=== PATIENT | female | born 1975 | race Caucasian/White ===

== ENCOUNTER 2019-06-27 16:37 | Emergency (ER) | payer OTHER ==
[2019-06-27 16:45] VITALS: TEMP 98.2
[2019-06-27] MEDS ORDERED: KETOROLAC 30 MG/ML 1 ML VIAL IM STA (16:54)
[2019-06-27] MEDS ORDERED: DIPH,PERTUS(ACELL)TETVAC-LF 0.5 ML VIAL IM ONE (16:54)
[2019-06-27] MEDS ORDERED: ceFAZolin 1,000 MG VIAL (IM USE) IM STA (16:54)
--- NOTE | 2019-06-27 17:00 | ED ---
General Adult HPI - General Chief complaint: Skin/Abscess/Foreign Body Stated complaint: [facility] - nail in rt leg Time Seen by Provider: 06/27/19 16:42 Source: patient, RN notes reviewed Mode of arrival: ambulatory Limitations: no limitations - History of Present Illness Initial comments: 44-year-old female presents to the emergency department for a chief complaint of foreign body in the right knee. Patient states that she was at work loading luh of felt. States she felt a pinch in her right knee. States that when she inspected this area she noticed there was a nail sticking out of her leg. States the area is painful and numb. Patient is unsure of tetanus status. Patient has no other complaints at this time including shortness of breath, ches t pain, abdominal pain, nausea or vomiting, headache, or visual changes. - Related Data Previous Rx's Medication Instructions Recorded Cephalexin [Keflex] 500 mg PO Q6HR #40 cap 06/27/19 Allergies Allergy/AdvReac Type Severity Reaction Status Date / Time tramadol Allergy Nausea Verified 06/27/19 16:43 Review of Systems ROS Statement: Those systems with pertinent positive or pertinent negative responses have been documented in the HPI. ROS Other: All systems not noted in ROS Statement are negative. Past Medical History Past Medical History: No Reported History History of Any Multi-Drug Resistant Organisms: None Reported Past Surgical History: Cholecystectomy Additional Past Surgical History / Comment(s): right lower leg cyst removed Past Psychological History: No Psychological Hx Reported Smoking Status: Former smoker Past Alcohol Use History: None Reported Past Drug Use History: None Reported General Exam Limitations: no limitations General appearance: alert, in no apparent distress Head exam: Present: atraumatic, normocephalic, normal inspection Eye exam: Present: normal appearance, PERRL, EOMI. Absent: scleral icterus, conjunctival injection, periorbital swelling ENT exam: Present: normal exam, mucous membranes moist Neck exam: Present: normal inspection. Absent: tenderness, meningismus, lymphadenopathy Respiratory exam: Present: normal lung sounds bilaterally. Absent: respiratory distress, wheezes, rales, rhonchi, stridor Cardiovascular Exam: Present: regular rate, normal rhythm, normal heart sounds. Absent: systolic murmur, diastolic murmur, rubs, gallop, clicks Extremities exam: Present: normal inspection, full ROM, normal capillary refill, other (Patient does have pants on over the leg but you can see the nail head along the medial distal aspect of the right knee. Patient does not want her pants cut at this time.). Absent: tenderness, pedal edema, joint swelling, calf tenderness Course Vital Signs 06/27/19 06/27/19 06/27/19 16:40 16:45 17:45 Temperature 98.2 F Pulse Rate 93 86 81 Respiratory 16 20 18 Rate Blood Pressure 146/98 143/98 140/87 O2 Sat by Pulse 98 99 99 Oximetry Medical Decision Making - Medical Decision Making She has nail in the medial aspect of the right proximal tib-fib area. This does not include the knee joint space. X-ray shows nail foreign body in the soft tissue. I did attempt to remove this without lidocaine because patient did not want to cut her pants. However patient was unable to tolerate this. Pants were cut. 6 mL of lidocaine was injected into the area and nail was removed using traction. It was then irrigated with saline pressure irrigation. Tetanus was updated. Patient was given Ancef and will be given Keflex outpatient. Discussed strict return parameters including ulcer infection. Discussed returning if she has any worsening symptoms otherwise she will follow-up with primary care for recheck in the next 1-2 days. Disposition Clinical Impression: Soft tissues foreign body Disposition: HOME SELF-CARE Condition: Good Instructions (If sedation given, give patient instructions): Puncture Wound (ED) Additional Instructions: Please take Keflex as directed starting tomorrow. Please monitor for signs of infection such as redness drainage or fever and return if these occur. Follow- up with primary care for a wound recheck in the next 1-2 days. Return if you have any worsening symptoms. Prescriptions: Cephalexin [Keflex] 500 mg PO Q6HR #40 cap Is patient prescribed a controlled substance at d/c from ED?: No Referrals: Master Gregg DO [Primary Care Provider] - 1-2 days Time of Disposition: 18:29
[2019-06-27] MEDS ORDERED: LIDOCAINE 1% INJ 10MG/ML (20 ML MDV) SQ ONE ×2 (17:14→18:26)
--- NOTE | 2019-06-27 17:22 | XR ---
EXAMINATION TYPE: XR knee complete RT DATE OF EXAM: 06/27/2019 COMPARISON: NONE HISTORY: Foreign body TECHNIQUE: 3 views FINDINGS: There is a nail foreign body embedded in the soft tissues on the medial aspect of the proxi mal tibia on the frontal view. The nail head is exposed at the skin surface. The knee joint spaces are normal. There is no sign of joint effusion. IMPRESSION: Nail foreign body in the soft tissues. No fracture. Normal knee joint. Thickening of the proximal fibula consistent with an old healed fracture.
[2019-06-27 18:09] VITALS: BP 140/87
[2019-06-27 18:29] VITALS: PULSE 81
[2019-06-27 18:47] VITALS: RESP 20
== END 2019-06-27 18:47 | disposition home or self-care (01) ==
LOC: EC 16:37
DX: M79.5 Residual foreign body in soft tissue (principal); Z87.891 Personal history of nicotine dependence; Z88.5 Allergy status to narcotic agent; Z23 Encounter for immunization; W45.0XXA Nail entering through skin, initial encounter; Y93.89 Activity, other specified; Y92.69 Other specified industrial and construction area as the place of occurrence of the external cause; Y99.0 Civilian activity done for income or pay
CPT/HCPCS: 73562; 90715; 99283; 64450; 96372 ×2; 90471; J0690; J2001; J1885

== ENCOUNTER 2019-07-13 14:21 | Emergency (ER) | payer OTHER ==
[2019-07-13] MEDS ORDERED: PROPARACAINE 0.5% OPHTH DROPS 15 ML BTL LEFT EYE STA (14:49)
--- NOTE | 2019-07-13 15:29 | ED ---
General Adult HPI - General Chief complaint: Eye Problems Stated complaint: left eye irritant Time Seen by Provider: 07/13/19 14:29 Source: patient, RN notes reviewed, old records reviewed Mode of arrival: ambulatory Limitations: no limitations - History of Present Illness Initial comments: 44-year-old female patient presents to ED for chief complaint of left eye irritation for the last 4 days. Patient reports that she woke up and noticed some bleeding in her left eye. Patient reports that she has been having some localized discomfort as well as waxing and waning headaches. Reports that her vision is at baseline although she did have a brief scotoma which resolved. Denies any other complaints at this time. Systemic: Pt denies fatigue, fever/chills, rash. Pt denies weakness, night sweats, weight loss. Neuro: Pt denies headache, visual disturbances, syncope or pre-syncope. HEENT: Pt denies rhinorrhea, pharyngitis or notable lymphadenopathy. Cardiopulmonary: Pt denies chest pain, SOB, heart palpitations, dyspnea on exertion. Abdominal/GI: Pt denies abdominal pain, n/v/d. : Pt denies dysuria, burning w/ urination, frequency/urgency. Denies new onset urinary or bowel incontinence. MSK: Pt denies myalgia, loss of strength or function in extremities. Neuro: Pt denies new onset weakness, paresthesias. - Related Data Previous Rx's Medication Instructions Recorded Cephalexin [Keflex] 500 mg PO Q6HR #40 cap 06/27/19 Allergies Allergy/AdvReac Type Severity Reaction Status Date / Time tramadol Allergy Nausea Verified 07/13/19 14:25 Review of Systems ROS Statement: Those systems with pertinent positive or pertinent negative responses have been documented in the HPI. ROS Other: All systems not noted in ROS Statement are negative. Past Medical History Past Medical History: No Reported History History of Any Multi-Drug Resistant Organisms: None Reported Past Surgical History: Cholecystectomy Additional Past Surgical History / Comment(s): right lower leg cyst removed Past Psychological History: No Psychological Hx Reported Smoking Status: Former smoker Past Alcohol Use History: None Reported Past Drug Use History: None Reported General Exam - General Exam Comments Initial Comments: Constitutional: NAD, AOX3, Pt has pleasant affect. HEENT: NC/AT, trachea midline, neck supple, no lymphadenopathy. Posterior pharynx non erythematous, without exudates. External ears appear normal, without discharge. Mucous membranes moist. Eyes PERRLA, EOM intact. There is no scleral icterus. No pallor noted. Small conjunctiva hemorrhage noted left eye at 3:00. Flourescence stain did not reveal any corneal abrasion or ulcerations. Intraocular pressure of left eye average of 18. Intraocular pressure of right eye average of 25. Cardiopulmonary: RRR, no murmurs, rubs or gallops, no JVD noted. Lungs CTAB in anterior and posterior umanzor. No peripheral edema. Abdominal exam: Abdomen soft and non-distended. Abdomen non-tender to palpation in all 4 quadrants. Bowel sounds active in LLQ. No hepatosplenomegaly. No ecchymosis Neuro: CN II-XII grossly intact. No nuchal rigidity. No raccon eyes, no cuba sign, no hemotympanum. No cervical spinal tenderness. MSK: No posterior calf tenderness bilaterally, homans sign negative bilaterally. Posterior tibialis and radial pulse +2 bilaterally. Sensation intact in upper and lower extremities. Full active ROM in upper and lower extremities, 5/5 stregnth. Limitations: no limitations Course Vital Signs 07/13/19 14:25 Temperature 97.4 F L Pulse Rate 87 Respiratory 18 Rate Blood Pressure 138/93 O2 Sat by Pulse 96 Oximetry Medical Decision Making - Medical Decision Making 44-year-old female patient presents to ED for chief complaint of left eye irritation for the last 4 days. Patient reports that she woke up and noticed some bleeding in her left eye. Patient reports that she has been having some localized discomfort as well as waxing and waning headaches. Reports that her vision is at baseline although she did have a brief scotoma which resolved. Denies any other complaints at this time. Pt VSS, afebrile. Physical exam displayed: Small conjunctiva hemorrhage noted left eye at 3:00. Flourescence stain did not reveal any corneal abrasion or ulcerations. Intraocular pressure of left eye average of 18. Intraocular pressure of right eye average of 25. Neurologic exam is within normal limits. Visual acuity 20/30 left eye, 20/20 right eye. Subconjectival hemorrhage does appear to be reabsorbing. there is not discharge noted. Patient will be discharged for follow-up with [facility] mental health today, will follow up with primary care provider tomorrow, return to ER if condition worsens. Case discussed and pt seen by Dr. Estrada. Disposition Clinical Impression: Subconjunctival hemorrhage of left eye, Elevated IOP Disposition: HOME SELF-CARE Condition: Stable Instructions (If sedation given, give patient instructions): Subconjunctival Hemorrhage (ED) Additional Instructions: Follow-up with [facility] today, call after discharge. Follow-up with primary care provider tomorrow. Return immediately to ER if condition worsens in any way. Is patient prescribed a controlled substance at d/c from ED?: No Referrals: Master Gregg DO [Primary Care Provider] - 1-2 days Shiraz Chatterjee MD [STAFF PHYSICIAN] - 1-2 days
[2019-07-13 15:46] VITALS: TEMP 97.9
[2019-07-13 15:48] VITALS: BP 132/78; PULSE 72; RESP 16
== END 2019-07-13 15:35 | disposition home or self-care (01) ==
LOC: EC 14:21
DX: H11.32 Conjunctival hemorrhage, left eye (principal); H40.052 Ocular hypertension, left eye; Z87.891 Personal history of nicotine dependence; Z88.5 Allergy status to narcotic agent
CPT/HCPCS: 99283

== ENCOUNTER → 2020-05-29 | Outpatient (CLI) | payer OTHER ==
[2020-05-29 11:06] LABS: Basophils # (A) 0.1 k/uL (0-0.2); Basophils % (A) 1 %; Eosinophils # (A) 0.2 k/uL (0-0.7); Eosinophils % (A) 2 %; HCT 43.2 % (34.0-46.0); HGB 14.2 gm/dL (11.4-16.0); Lymphocytes # (A) 2.9 k/uL (1.0-4.8); Lymphocytes % (A) 28 %; MCH 29.5 pg (25.0-35.0); MCHC 32.9 g/dL (31.0-37.0); MCV 89.6 fL (80.0-100.0); Mean Platelet Volume 8.3; Monocytes # (A) 0.6 k/uL (0-1.0); Monocytes % (A) 6 %; Neutrophils # (A) 6.5 k/uL (1.3-7.7); Neutrophils % (A) 62 %; Platelet Count 363 k/uL (150-450); RBC 4.82 m/uL (3.80-5.40); RDW 13.1 % (11.5-15.5); WBC 10.4 k/uL (3.8-10.6)
[2020-05-29 11:09] LABS: Appearance,Urine Clear (Clear); Bacteria,Urine Few /hpf; Bilirubin,Urine Negative (Negative); Blood,Urine Negative (Negative); Color,Urine Light Yellow; Glucose,Urine (UA) Negative (Negative); Ketones,Urine Negative (Negative); Leukocyte Esterase,Urine Moderate (Negative); Mucus,Urine Rare /hpf; Nitrite,Urine Negative (Negative); Protein,Urine Negative (Negative); RBC,Urine 1 /hpf (0-5); Specific Gravity,Urine 1.007 (1.001-1.035); Squamous Epithelial Cell,Urine 1 /hpf (0-4); Urobilinogen,Urine <2.0 mg/dL (<2.0); WBC,Urine 9 /hpf (0-5)
[2020-05-29 12:25] LABS: Erythrocyte Sedimentation Rate 8 mm/hr (0-20)
[2020-05-29 19:19] LABS: Cyclic Citrull Pep IgG Unit 2.4 U/mL; Cyclic Citrullinated Pep IgG NEGATIVE (NEGATIVE)
[2020-05-29 20:22] LABS: Cancer Antigen 125 4.7 U/mL (0.0-30.1)
[2020-05-29 21:25] LABS: African American GFR (CKD) 90.1 (60.0-200.0); Albumin 5.1 g/dL (3.80-4.90); Albumin/Globulin Ratio 2.04 (1.60-3.17); Anion Gap 7.4 mmol/L (4.00-12.00); C Reactive Protein 0.7 mg/dL (0.0-0.8); Calcium 11.2 mg/dL (8.7-10.3); Carbon Dioxide 29.6 mmol/L (21.6-31.8); Globulin 2.5 g/dL (1.6-3.3); Non-African American GFR(CKD) 77.8 (60.0-200.0); Potassium 3.9 mmol/L (3.5-5.5); Total Bilirubin 0.4 mg/dL (0.3-1.2); Total Protein 7.6 g/dL (6.2-8.2)
== END | disposition home or self-care (01) ==
LOC: LABWHC1 09:49
PROVIDERS: ATTEND Family Medicine
DX: M13.0 Polyarthritis, unspecified (principal); E83.52 Hypercalcemia; Z80.41 Family history of malignant neoplasm of ovary
CPT/HCPCS: 36415; 80053; 81001; 82164; 85025; 85652; 86038; 86140; 86200; 86304; 86618

== ENCOUNTER → 2020-06-13 | Outpatient (CLI) | payer OTHER ==
--- NOTE | 2020-06-16 14:03 | XR ---
EXAMINATION TYPE: XR chest 2V DATE OF EXAM: 06/13/2020 COMPARISON: NONE HISTORY: Hypercalcemia TECHNIQUE: Frontal and lateral views of the chest are obtained. FINDINGS: There is no focal air space opacity, pleural effusion, or pneumothorax seen. The cardiac silhouette size is within normal limits. The osseous structures are intact. IMPRESSION: No acute cardiopulmonary process.
--- NOTE | 2020-06-17 09:13 | CT ---
EXAMINATION TYPE: CT chest w con DATE OF EXAM: 06/13/2020 COMPARISON: Radiograph 06/13/2020 HISTORY: 45-year-old female E83.52, Hypercalcemia, rule out sarcoid. TECHNIQUE: Contiguous axial scanning of the chest after the administration of 100ml mL of Isovue 300. Coronal/sagittal reconstructions performed. CT DLP: 420mGycm. Automatic exposure control utilized for a dose reduction. FINDINGS: Heart normal size without pericardial effusion. Aorta normal caliber with a bovine configuration to the aortic arch. No thoracic lymphadenopathy by CT size criteria. No thickening of the bronchovascular bundles or perilymphatic nodularity identified at this time. No consolidation or pleural effusion. Minimal emphysematous change in the upper lungs. Low-attenuation of the liver suggests underlying fatty infiltration. Cholecystectomy clips. Bones: No osseous destructive process. IMPRESSION: 1. No specific CT findings of sarcoidosis in the chest at this time. 2. Minimal emphysematous change in the upper lungs. 3. No acute pulmonary process. 4. Hepatic steatosis. Prior cholecystectomy.
== END | disposition home or self-care (01) ==
LOC: RADCTMAIN 16:10
PROVIDERS: ATTEND Family Medicine
DX: E83.52 Hypercalcemia (principal); K76.0 Fatty (change of) liver, not elsewhere classified
CPT/HCPCS: 71046; 71260; Q9967

== ENCOUNTER 2020-10-29 14:01 | Emergency (ER) | payer OTHER ==
[2020-10-29 14:23] VITALS: RESP 18; TEMP 97.8
[2020-10-29] MEDS ORDERED: HYDROmorphone 0.5 MG/0.5 ML SYRINGE IM STA (15:08)
[2020-10-29] MEDS ORDERED: LIDOCAINE 5% PATCH TOPICAL STA (15:08)
--- NOTE | 2020-10-29 15:31 | ED ---
Back Pain HPI - General Chief Complaint: Back Pain/Injury Stated Complaint: sent from for lower back pain Time Seen by Provider: 10/29/20 14:39 Source: patient - History of Present Illness Initial Comments: 45-year-old female presents to emergency department with a chief complaint of low back pain. Patient reports about one week ago she fell on her buttocks from a squatting position as she was attempting to pick something up off the ground. Patient reports soon after she developed pain in the right lumbosacral region is radiating down the posterior aspect of the right lower extremity to the mid thigh region. Patient states the pain is exacerbated with ambulation, weightbearing or any twisting motion. States she with her primary care physician of advised to come to emergency department for analgesia and CT imaging. Patient denies any saddle anesthesia, urinary retention with ORIF or bowel incontinence. Reports taking Tylenol and Motrin with no significant improvement in her symptoms. - Related Data Previous Rx's Medication Instructions Recorded cephALEXin [Keflex] 500 mg PO Q6HR #40 cap 06/27/19 Cyclobenzaprine [Flexeril] 5 mg PO TID PRN #15 tablet 10/29/20 HYDROcodone/APAP 5-325MG [Willis 1 tab PO Q6HR PRN 3 Days #12 tab 10/29/20 5-325] predniSONE 50 mg PO DAILY #5 tab 10/29/20 Allergies Allergy/AdvReac Type Severity Reaction Status Date / Time tramadol Allergy Nausea Verified 10/29/20 14:20 Review of Systems ROS Statement: Those systems with pertinent positive or pertinent negative responses have been documented in the HPI. ROS Other: All systems not noted in ROS Statement are negative. Past Medical History Past Medical History: No Reported History History of Any Multi-Drug Resistant Organisms: None Reported Past Surgical History: Section, Cholecystectomy Additional Past Surgical History / Comment(s): right lower leg cyst removed Past Psychological History: No Psychological Hx Reported Smoking Status: Current every day smoker Past Alcohol Use History: None Reported Past Drug Use History: None Reported General Exam Limitations: no limitations General appearance: alert, in no apparent distress, obese Head exam: Present: atraumatic, normocephalic, normal inspection Eye exam: Present: normal appearance, PERRL, EOMI Pupils: Present: normal accommodation ENT exam: Present: normal exam, normal oropharynx, mucous membranes moist, TM's normal bilaterally, normal external ear exam Neck exam: Present: normal inspection, full ROM. Absent: tenderness Respiratory exam: Present: normal lung sounds bilaterally. Absent: respiratory distress, wheezes Cardiovascular Exam: Present: regular rate, normal rhythm, normal heart sounds GI/Abdominal exam: Present: soft. Absent: distended, tenderness, guarding, rebound, rigid Extremities exam: Present: normal inspection, full ROM, normal capillary refill. Absent: tenderness, pedal edema, joint swelling, other Back exam: Present: normal inspection, full ROM, tenderness, paraspinal tenderness (Right-sided paraspinal tenderness in the lower lumbar region with tenderness along the posterior aspect of the right buttock and right upper extremity.). Absent: CVA tenderness (R), CVA tenderness (L), muscle spasm, vertebral tenderness, rash noted Neurological exam: Present: alert, oriented X3, CN II-XII intact, normal gait Psychiatric exam: Present: normal affect, normal mood Skin exam: Present: warm, dry, intact, normal color Course Vital Signs 10/29/20 10/29/20 14:21 17:04 Temperature 97.8 F Pulse Rate 88 70 Respiratory 18 18 Rate Blood Pressure 129/93 118/79 O2 Sat by Pulse 100 98 Oximetry Medical Decision Making - Medical Decision Making 45-year-old female presents to emergency Department with a chief complaint of back pain. Physical examination, right lower paraspinal tenderness in the lumbosacral region with sciatica-type symptoms going to the right lower extremity. Likely lumbar radiculopathy. CT of the lumbar spine which includes the sacrum revealed no acute findings aside from mild L4/L5 central stenosis. Patient was given analgesia and a Lidoderm patch in the emergency department. She did report some improvement but the pain is still persistent. I did give her second dose of analgesia and will discharge her with 3 days of Willis, Flexeril and steroids. I advised the patient to follow-up with a spine surgeon. No concern for cauda equina at this time. Return parameters discussed the patient was standing agreeable. Case discussed with Disposition Clinical Impression: Lumbar radiculopathy, right Disposition: HOME SELF-CARE Condition: Stable Instructions (If sedation given, give patient instructions): Acute Low Back Pain (ED) Additional Instructions: Follow-up with reception specialist. Take medication as directed. Return to emergency department if symptoms worsen. Prescriptions: Cyclobenzaprine [Flexeril] 5 mg PO TID PRN #15 tablet PRN Reason: Muscle Spasm HYDROcodone/APAP 5-325MG [Willis 5-325] 1 tab PO Q6HR PRN 3 Days #12 tab PRN Reason: Pain predniSONE 50 mg PO DAILY #5 tab Is patient prescribed a controlled substance at d/c from ED?: No Referrals: Jennifer Lopez MD [Primary Care Provider] - 1-2 days Real Barron DO [Doctor of Osteopathic Medicine] - 1-2 days Time of Disposition: 16:33
--- NOTE | 2020-10-29 16:04 | CT ---
EXAMINATION TYPE: CT lumbar spine wo con DATE OF EXAM: 10/29/2020 COMPARISON: None HISTORY: Sacrum imaged per ordering PA. Acute low back pain. CT DLP: 1394.[address] of the lumbar spine was performed. Bone and soft tissue window settings are submitted as well as coronal and sagittal reconstructions. L1-L2: Normal disc space height. No disc herniation protrusion or central stenosis. No facet joint arthropathy. No evidence for foraminal encroachment. L2-L3: Normal disc space height. No disc herniation protrusion or central stenosis. No facet joint arthropathy. No evidence for foraminal encroachment. L3-L4: Normal disc space height. No disc herniation protrusion or central stenosis. No facet joint arthropathy. No evidence for foraminal encroachment. L4-L5: Mild degenerative disc space narrowing. Moderate posterior disc bulge. Effacement of the ventr al thecal sac with mild central stenosis suggested. L5-S1: Normal disc space height. No disc herniation protrusion or central stenosis. No facet joint arthropathy. No evidence for foraminal encroachment. No paraspinal masses are identified. Lumbar segments are free if fracture. Visualized sacral segment s are unremarkable. IMPRESSION: 1. L4-5 mild central stenosis.
[2020-10-29] MEDS ORDERED: HYDROmorphone 1 MG/ML 1 ML SYRINGE IM STA (16:31)
[2020-10-29 17:05] VITALS: BP 118/79; PULSE 70
== END 2020-10-29 17:04 | disposition home or self-care (01) ==
LOC: EC 14:01
DX: M51.16 Intervertebral disc disorders with radiculopathy, lumbar region (principal); F17.200 Nicotine dependence, unspecified, uncomplicated
CPT/HCPCS: 72131; 99283; 96372 ×2; J1170 ×2

== ENCOUNTER → 2021-12-11 | Outpatient (CLI) | payer OTHER ==
[2021-12-11 18:10] LABS: Basophils # (A) 0.08 X 10*3/uL (0.00-0.10); Basophils % (A) 0.7 %; Eosinophils # (A) 0.24 X 10*3/uL (0.04-0.35); HGB 12.5 g/dL (12.0-15.0); Immature Grans, Automated 0.4 %; Lymphocytes # (A) 4.87 X 10*3/uL (0.90-5.00); Lymphocytes % (A) 41.4 %; MCH 29.3 pg (27.0-32.0); MCHC 32.1 g/dL (32.0-37.0); MCV 91.3 fL (80.0-97.0); Mean Platelet Volume 11.9 fL (9.5-12.2); Monocytes # (A) 1.17 X 10*3/uL (0.20-1.00); Monocytes % (A) 9.9 %; NRBC Per 100 WBC 0 /100 WBCS (0.0-0.0); Neutrophils # (A) 5.36 X 10*3/uL (1.80-7.70); Neutrophils % (A) 45.6 %; Platelet Count 292 X 10*3/uL (140-440); RBC 4.27 X 10*6/uL (4.10-5.20); RDW 13.6 % (11.5-14.5); WBC 11.77 X 10*3/uL (4.50-10.00)
[2021-12-11 18:19] LABS: ALT 67 U/L (8-44); AST 32 U/L (13-35); African American GFR (CKD) 113.4 (60.0-200.0); Albumin 4.4 g/dL (3.8-4.9); Alkaline Phosphatase 79 U/L (41-126); BUN/Creat Ratio 18.92 Ratio (12.00-20.00); Calcium 9.9 mg/dL (8.7-10.3); Carbon Dioxide 24.2 mmol/L (20.0-27.5); Chloride 102 mmol/L (96-109); Chol/HDL Ratio 5.77 Ratio; Globulin 2.5 g/dL (1.6-3.3); Glucose 76 mg/dL (70-110); Iron 116 ug/dL (50-170); LDL Cholesterol,Calculated 168.6 mg/dL (0.0-131.0); Lipase 19 U/L (14-63); Non-African American GFR(CKD) 97.8 (60.0-200.0); Sodium 141 mmol/L (135-145); Total Iron Binding Capacity 416 ug/dL (228-460); Total Protein 6.9 g/dL (6.2-8.2)
[2021-12-11 19:07] LABS: Erythrocyte Sedimentation Rate 18 mm/Hr (0-20)
== END | disposition home or self-care (01) ==
LOC: LABWHC1 11:25
PROVIDERS: ATTEND Family Medicine
DX: M06.9 Rheumatoid arthritis, unspecified (principal); M51.26 Other intervertebral disc displacement, lumbar region; R73.9 Hyperglycemia, unspecified; K29.00 Acute gastritis without bleeding; E78.5 Hyperlipidemia, unspecified; E53.8 Deficiency of other specified B group vitamins; E55.9 Vitamin D deficiency, unspecified; R42 Dizziness and giddiness; G37.9 Demyelinating disease of central nervous system, unspecified; R41.3 Other amnesia; H53.9 Unspecified visual disturbance
CPT/HCPCS: 36415; 80053; 80061; 82306; 82607; 83036; 83540; 83550; 83690; 84443; 85025; 85652; 86140

== ENCOUNTER → 2022-03-27 | Outpatient (CLI) | payer OTHER ==
--- NOTE | 2022-03-27 14:01 | BD ---
EXAMINATION TYPE: Axial Bone Density DATE OF EXAM: 03/27/2022 COMPARISON: NONE CLINICAL HISTORY: 46 years year old Female. ICD-10 CODE: Z80.3,N95.1,M89.9,Z79.52 DISORDER OF BONE Height: 5 FT 4 IN Weight: 225 FRAX RISK QUESTIONS: Alcohol (3 or more units per day): NO Family History (Parent hip fracture): NO Glucocorticoids (More than 3mos): YES (Ex: prednisone, prednisolone, methylprednisolone, dexamethasone, and hydrocortisone). History of Fracture in Adulthood: NO Secondary Osteoporosis: 1. Type 1 Diabetes: NO 2. Hyperthyroidism: NO 3. Menopause before 45: YES 4. Malnutrition: NO 5. Chronic liver disease: NO Rheumatoid Arthritis: YES Current Tobacco Use: YES RISK FACTORS HISTORY OF: Surgery to Spine/Hip(right/left)/Wrist (right/left): NO Family History of Osteoporosis: YES Active: YES Diet low in dairy products/other sources of calcium: NO Postmenopausal woman: YES Take estrogen and/or progesterone medications: NO Lost more than 2 inches in height since high school: YES Frequent falls: NO Poor Health: GOOD Hyperparathyroidism: NO Adrenal Insufficiency: NO MEDICATIONS: Additional Medications: ZANAFLES, CETIRIZINE, METHOCARBMOL,,MONTELUKAST, OMEPRAZOLE, NAPROXEN, ROPINI ROLE,SAXENDA INJ, Additional History: EXAM MEASUREMENTS: Bone mineral densitometry was performed using the VoluBill System. Bone mineral density as measured about the Lumbar spine is: ----- L1-L4(G/cm2): 1.212 T Score Values are as follows: ----- L1: 1.0 ----- L2: 0.3 ----- L3: 0.2 ----- L4: -0.4 ----- L1-L4: 0.3 BASELINE Bone mineral density about the R hip (g/cm2): 0.896 Bone mineral density about the L hip (g/cm2): 0.976 T Score values are as follows: -----R Neck: -1.0 -----L Neck: -0.4 -----R Total: 0.1 -----L Total: 0.5 BASELINE FRAX%s: The graph provided illustrates a 3.4 % chance for a major osteoporotic fx and a 0.2 % chance for the hips probability for fx in 10 years time. IMPRESSION: Normal (Values between +1 and -1 indicate normal bone mass). Consider repeating this study in 5 year s or sooner if there is some new clinical indication. NOTE: T-SCORE=SD OF THE YOUNG ADULT MEAN.
--- NOTE | 2022-03-28 17:47 | MM ---
Reason for Exam: Screening (asymptomatic). Baseline mammogram. Patient History: Menarche at age 14. First Full-Term at age 17. Postmenopausal. Maternal aunt had breast cancer. Maternal aunt had breast cancer. Maternal grandmother had ovarian cancer. Risk Values: Melissa 5 year model risk: 0.6%. NCI Lifetime model risk: 7.0%. Prior Study Comparison: Patient's first Mammogram. No prior studies available for comparison. Tissue Density: There are scattered fibroglandular densities. Findings: Analyzed By CAD. Within the right mediolateral oblique view there are calcifications within the mid right breast. These are not localized on the craniocaudal projection. Recommend additional workup of the right breast to include 3-D mammography right lateral view and magnification views in the mediolateral oblique view and possibly cranial caudal projection. Some nonspecific nodularity is present within the bilateral breasts. Ultrasound can be performed of the bilateral breasts. Overall Assessment: Incomplete: need additional imaging evaluation, BI-RAD 0 Management: Diagnostic Mammogram of the right breast. Diagnostic Breast Ultrasound of both breasts. A negative mammogram report should not preclude additional follow up of suspicious palpable abnormalities. Patient should continue monthly self breast exam. A clinical breast exam by your physician is recommended on an annual basis and results should be correlated with mammographic findings. Electronically signed and approved by: Oscar Cali D.O. Radiologis
== END | disposition home or self-care (01) ==
LOC: RADMAMWWP 11:11
PROVIDERS: ATTEND Family Medicine
DX: Z12.31 Encounter for screening mammogram for malignant neoplasm of breast (principal); Z80.3 Family history of malignant neoplasm of breast; N95.1 Menopausal and female climacteric states; M89.9 Disorder of bone, unspecified; Z79.52 Long term (current) use of systemic steroids
CPT/HCPCS: 77067; 77080

== ENCOUNTER → 2022-10-21 | Outpatient (CLI) | payer OTHER ==
--- NOTE | 2022-10-21 14:05 | MM ---
Reason for Exam: Follow-up at short interval from prior study. Last screening mammogram was performed 7 month(s) ago. Patient History: Menarche at age 14. First Full-Term at age 17. Postmenopausal. Maternal aunt had breast cancer under age 50. Maternal aunt had ovarian cancer under age 50. Maternal aunt had breast cancer at or over age 50. Maternal aunt had ovarian cancer at or over age 50. Maternal grandmother had ovarian cancer. Maternal aunt had ovarian cancer at or over age 50. Risk Values: Melissa 5 year model risk: 0.6%. NCI Lifetime model risk: 6.9%. Prior Study Comparison: 03/27/2022 Bilateral MG screening mammo w CAD, [facility]. 04/02/2022 Right MG work up mamm w CAD RT, [facility]. Tissue Density: The breast tissue is heterogeneously dense. This may lower the sensitivity of mammography. Findings: Analyzed By CAD. Stable appearance of the breast parenchyma. No new suspicious masses, calcifications or distortions. Overall Assessment: Benign, BI-RAD 2 Management: Screening Mammogram of both breasts in 1 year. . Results were given to the patient verbally at the time of exam. Patient should continue monthly self-breast exams. A clinical breast exam by your physician is recommended on an annual basis. This exam should not preclude additional follow-up of suspicious palpable abnormalities. Note on Melissa scores and lifetime risk: 1. A Melissa score greater than 3% is considered moderate risk. If this is the case, consider specialist referral to assess eligibility for a risk reducing agent. 2. If overall lifetime risk for the development of breast cancer is 20% or higher, the patient may qualify for future screening with alternating mammogram and breast MRI. Electronically signed and approved by: Raul Vigil DO
== END | disposition home or self-care (01) ==
LOC: RADMAMWWP 12:58
PROVIDERS: ATTEND Family Medicine
DX: R92.8 Other abnormal and inconclusive findings on diagnostic imaging of breast (principal); Z78.0 Asymptomatic menopausal state; Z80.3 Family history of malignant neoplasm of breast
CPT/HCPCS: 77066; G0279; 77062

== ENCOUNTER → 2022-12-30 | Outpatient (CLI) | payer OTHER ==
--- NOTE | 2022-12-30 14:58 | XR ---
EXAMINATION TYPE: XR lumbosacral spine min 4V DATE OF EXAM: 12/30/2022 1:51 PM INDICATION: Patient age:Female; 47 years old; Reason for study: M54.50 M79.641 M79.642; [facility]. COMPARISON: 10/29/2020 CT TECHNIQUE: Frontal, lateral , bilateral oblique and coned in L5-S1 lateral views of the spine. FINDINGS: No evidence of any acute osseous pathology. No evidence of loss of vertebral body height i s seen. There is normal alignment of the lumbar vertebral bodies. Minimal osteophyte formation and fa cet joint arthropathy present. The neural foramen are grossly patent. The spinal canal is grossly pat ent. Quadrant cholecystectomy clips. IMPRESSION: 1. No acute fracture. 2. Mild multilevel disc degeneration.
--- NOTE | 2022-12-30 15:02 | XR ---
EXAMINATION TYPE: XR hand limited bilateral DATE OF EXAM: 12/30/2022 1:51 PM INDICATION: Patient age:Female; 47 years old; Reason for study: M54.50 M79.641 M79.642; [facility]. COMPARISON: None TECHNIQUE: Frontal, lateral and oblique views of the bilateral hands were were obtained. FINDINGS: Normal alignment of the visualized joints. No acute osseous pathology is identified. No e vidence of soft tissue swelling. Joint space narrowing and osteophyte formation of the fifth digit di stal interphalangeal joint. Other degeneration changes are mild throughout the bilateral hands. IMPRESSION: 1. No acute osseous pathology. 2. 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
== END | disposition home or self-care (01) ==
LOC: RADXRMAIN 13:29
PROVIDERS: ATTEND Family Medicine
DX: M19.042 Primary osteoarthritis, left hand (principal); M19.041 Primary osteoarthritis, right hand; M51.36 Other intervertebral disc degeneration, lumbar region
CPT/HCPCS: 72110